=== PATIENT | male | born 1965 | race Caucasian/White ===

== ENCOUNTER 2025-01-09 10:43 | Emergency (ER) | payer OTHER ==
[~2025-01-09] VITALS: Ht 170.2 cm; Wt 127.0 kg
[2025-01-09 10:45] VITALS: O2SAT 99
[2025-01-09] MEDS: KETOROLAC 15MG/ML VIAL IM ONE (12:29)
[2025-01-09] MEDS: LIDOCAINE 5% PATCH TOP SCH (12:30)
[2025-01-09] MEDS: ACETAMINOPHEN 325MG TABLET PO ONE (12:30)
[2025-01-09] MEDS ORDERED: CYCL10TA21 MT (12:38)
[2025-01-09] MEDS ORDERED: LIDO700A30 TP (12:39)
[2025-01-09 12:55] VITALS: BP 165/78; PULSE 78; RESP 18; TEMP 37; O2SAT 99
== END 2025-01-09 12:56 | disposition home or self-care (01) ==
LOC: ER 10:43
DX: M54.50 Low back pain, unspecified (principal)
CPT/HCPCS: 99284; 71045; 73030; 96372; J1885